=== PATIENT | male | born 1980 | race African-American/Black ===

== ENCOUNTER 2023-12-05 05:40 | Day surgery (SDC) | payer BC ==
[2023-11-26 08:20] VITALS: BP 133/92
[~2023-12-05] VITALS: Ht 180.3 cm; Wt 95.5 kg
[~2023-12-05 05:40] MED LIST: LACTATED RINGER'S 1,000 ML IV SCH
[2023-12-05 05:59] VITALS: BP 132/92
--- NOTE | 2023-12-05 06:07 | NUR ---
WITH PT WAITING. WILL GO TO WORK.
[2023-12-05] MEDS ORDERED: IBLOOD GLUCOSE TEST STRIP 1 EA TEST VI PRN (07:00)
[2023-12-05] MEDS ORDERED: LIDOCAINE HCL 1% 5 ML SDV INJ ONE (07:00)
[2023-12-05] MEDS ORDERED: HEParin SOD (PORCINE) 5,000 UNIT/0.5 ML SYR SUB-Q SCH (07:00)
[2023-12-05] MEDS ORDERED: CEFAZOLIN SODIUM 2 GM/20 ML SYR IV SCH (07:00)
[2023-12-05] MEDS ORDERED: fentaNYL citrate 100 MCG/2 ML VIAL ONE (07:16)
[2023-12-05] MEDS ORDERED: ondansetron HCL 4 MG/2 ML VIAL ONE (07:17)
[2023-12-05] MEDS ORDERED: propofoL 200 MG/20 ML VIAL ONE (07:17)
[2023-12-05] MEDS ORDERED: ROCURONIUM BROMIDE 50 MG/5 ML SYR ONE (07:18)
[2023-12-05] MEDS ORDERED: LIDOCAINE HCL 2% 5 ML SDV ONE (07:18)
--- NOTE | 2023-12-05 07:18 | NUR ---
STEWARD/STEWARDESS TOURIST CLASS IN TO TALK WITH PT IN TO JOE PT LEFT FOR WORK.
[2023-12-05] MEDS ORDERED: SUGAMMADEX SODIUM 200 MG/2 ML ML ONE (08:01)
[2023-12-05] MEDS ORDERED: KETOROLAC TROMETHAMINE 30 MG/ML VIAL ONE (08:06)
[2023-12-05] MEDS ORDERED: NALOXONE HCL 0.4 MG SYR IV PRN ×2 (08:30→09:00)
[2023-12-05] MEDS ORDERED: HYDROmorphone HCL 1 MG/ML SYR IV PRN (08:30)
[2023-12-05] MEDS ORDERED: PROCHLORPERAZINE EDISYLATE 10 MG/2 ML VIAL IV PRN (08:30)
[2023-12-05] MEDS ORDERED: HYDROCODONE/ACETA 5/325 TAB PO PRN (08:30)
[2023-12-05] MEDS ORDERED: ondansetron HCL 4 MG/2 ML VIAL IV PRN ×2 (08:30→09:00)
--- NOTE | 2023-12-05 08:42 | NUR ---
12/05/23 0842 Magaña,Doretha Mckenna 0825: OXYGEN DECREASED TO 4 L/MIN VIA MASK. 0831: OXYGEN MASK REMOVED. PATIENT ON ROOM AIR. PATIENT DENIES PAIN. DR. ROSALES AT BEDSIDE SPEAKING WITH PATIENT. 0835: PATIENT GIVEN WATER TO SIP ON.
[2023-12-05 08:50] VITALS: BP 129/91
--- NOTE | 2023-12-05 08:55 | NUR ---
AT WORK RESTING QUIETLY. WATER CRACKERS AND CALL LIGHT GIVEN.
[2023-12-05] MEDS ORDERED: MEPERIDINE HCL 25 MG/1 ML VIAL IV PRN (09:00)
[2023-12-05] MEDS ORDERED: METOCLOPRAMIDE HCL 10 MG/2 ML SDV IV PRN (09:00)
[2023-12-05] MEDS ORDERED: fentaNYL citrate 50 MCG/ML SDV IV PRN (09:00)
[2023-12-05] MEDS ORDERED: diphenhydrAMINE HCL 50 MG/ML VIAL IV PRN (09:00)
[2023-12-05] MEDS ORDERED: MORPHINE SULFATE 10 MG/ML VIAL IV PRN (09:00)
[2023-12-05 09:52] VITALS: BP 138/88
[2023-12-05 10:36] VITALS: BP 144/87
--- NOTE | 2023-12-05 10:37 | NUR ---
DENIES ANY NEED FOR PAIN MED STATES MORE LIKE A SORE MUSCLE.
--- NOTE | 2023-12-05 11:03 | NUR ---
NO SCRIPT ON CHART PT STATES HE DOESNT TAKE NARCOTICS. DR ROSALES CALLED AND PT TO USE IBUPROFEN ALEVE OR TYLENOL AND TO CALL HOSPITAL IF HE CHANGES MIND. CONTINUE TO USE ICE PACK FOR COMFORT.
--- NOTE | 2023-12-09 06:31 | OR ---
[facility] [address], [place] [address] Signed DATE OF OPERATION: 12/05/2023 SURGEON: Vanessa Rosales MD PREOPERATIVE DIAGNOSES: 1. Incarcerated epigastric hernia (8 mm). 2. Possible umbilical hernia. POSTOPERATIVE DIAGNOSES: 1. Incarcerated epigastric hernia (8 mm). 2. No umbilical hernia. PROCEDURE: Primary umbilical herniorrhaphy with intra-abdominal 4.3 cm round Ventralex mesh. ESTIMATED BLOOD LOSS: None. INDICATIONS: Norman is a 43-year-old gentleman, who happens to work for [email or web address] He has to lift up to 150 pounds on a daily basis. He actually came to the office in 2020. He had a small incarcerated epigastric hernia just above the umbilicus. There was concern that he might have a small umbilical hernia as well on physical exam. He wanted to wait and see how things would go on a conservative basis. He said he has been having more pain and he thinks the epigastric hernia has increased in size. He does not complain about pain at the base of the umbilicus. He came back to the office to have me re-examine him and consider surgical repair. Indeed he has an incarcerated epigastric hernia. Once again, it is little unclear if he has a small umbilical hernia at the base. I had given our brochure on hernias and we went through it page by page. He understands the nature of an epigastric hernia. We reviewed primary suture repair versus mesh repair. He understands the expected intraop and postop course. There is risk including, but not limited to bleeding, infection, scarring, change in contour of the skin, damage to bowel, infection of mesh requiring removal, recurrent hernias and chronic pain. He had expressed understanding and wished to proceed. PROCEDURE IN DETAIL: I met with Norman in our preop area. We both agreed on the epigastric hernia and marked it appropriately. We re-examined the umbilicus and again we are not entirely sure that he has a fascial defect at the base. I told him I would check that intraoperatively and if necessary, I would use larger mesh to cover both areas. After this, Norman was taken Electronically Signed By: VANESSA ROSALES MD 12/09/23 0631 PATIENT NAME: NORMAN CARBAJAL OPERATIVE REPORT DATE OF : 78 REPORT #: [id number] PHYSICIAN: VANESSA ROSALES MD PCP: MARCELLE LAMB MD REPORT IS CONFIDENTIAL AND NOT TO BE RELEASED WITHOUT AUTHORIZATION [facility] [address], [place] [address] Signed into the operating room and placed in the supine position under general endotracheal tube anesthesia. He was given preoperative antibiotics along with subcutaneous heparin. SCDs were utilized. He was prepped and draped in the usual sterile fashion. We made a standard vertical incision above the umbilicus, went down around the herniated fat bluntly and with the cautery. The herniated fat and hernia sac were excised with the help of the cautery. His fascial defect was about 8 mm. With the help of Pean clamp, we explored the area of the umbilicus and we could not convince ourselves that he had a fascial defect. Consequently, we chose our 4.3 cm round Ventralex mesh and we placed that inside the abdomen, brought up and flushed against the posterior abdominal wall. His falciform ligament was not involved. The mesh was held in place with interrupted [id number] #1 Prolene suture with two passes of the Prolene suture through the tab on the mesh to hold it in place. The tab was then cut, flushed with the abdominal wall. An additional simple suture was placed on the left side of the fascial defect with #1 Prolene suture. After this, local anesthetic was copiously injected into the abdominal wall and subcutaneous tissues. The wound was irrigated and suctioned out until clear. We closed the dermis with interrupted 3-0 subcuticular Monocryl sutures. The skin edges were reapproximated with a running 5-0 fast absorbing plain gut suture. Dry gauze and tape was then applied. Norman was awakened from his anesthesia, extubated in the OR, and taken to recovery room in stable condition. Vanessa Rosales MD ALB/MODL /[id number] cc: MD Marcelle Trujillo MD Copies: VANESSA ROSALES MD, RUSSELL BARR MD ~ Electronically Signed By: VANESSA ROSALES MD 12/09/23 0631 PATIENT NAME: NORMAN CARBAJAL OPERATIVE REPORT DATE OF : 78 REPORT #: [id number] PHYSICIAN: VANESSA ROSALES MD PCP: MARCELLE LAMB MD REPORT IS CONFIDENTIAL AND NOT TO BE RELEASED WITHOUT AUTHORIZATION
== END 2023-12-05 11:15 | disposition home or self-care (01) ==
LOC: DS 05:40
PROVIDERS: ATTEND Colon & Rectal Surgery
PROC: 0WUF0JZ Supplement Abdominal Wall with Synthetic Substitute, Open Approach (ICD-10-PCS; principal; 2023-12-05 07:30)
DX: K43.6 Other and unspecified ventral hernia with obstruction, without gangrene (principal); K21.9 Gastro-esophageal reflux disease without esophagitis; E78.5 Hyperlipidemia, unspecified; Z87.891 Personal history of nicotine dependence
CPT/HCPCS: 00750; C1781; J0690; J1644; J1885; J2001; J2405; J2704; J3010; J3490; J7121

== ENCOUNTER 2024-04-26 08:20 | Day surgery (SDC) | payer OTHER, BC ==
--- NOTE | 2024-04-22 11:38 | NUR ---
PHONE CALL TO COMPLETE PHONE PRE ADMIT NO ANSWER AT [phone]. LEFT INSTRUCTION VIA PHONE IF UNABLE TO REACH PT. NPO AT MIDNIGHT ON 04-25-24 AND ARRIVAL TIME.
[~2024-04-26] VITALS: Ht 180.3 cm; Wt 107.7 kg
[~2024-04-26 08:20] MED LIST changes: +CEFAZOLIN SODIUM 2 GM/20 ML SYR IV SCH; +IBLOOD GLUCOSE TEST STRIP 1 EA TEST VI PRN; +LIDOCAINE HCL 1% 5 ML SDV INJ ONE; +TRANEXAMIC ACID IN NACL,ISO-OS 1,000 MG/100 ML PIGGYBACK IV SCH
[2024-04-26 08:45] VITALS: BP 128/89
--- NOTE | 2024-04-26 09:00 | NUR ---
BACILIO WAITING WITH PT THEN GOING TO WORK TO CALLED.
[2024-04-26] MEDS ORDERED: LIDOCAINE HCL 2% 20 MG/ML VIAL INJ ONE (09:45)
[2024-04-26] MEDS ORDERED: fentaNYL citrate 100 MCG/2 ML VIAL ONE (09:45)
[2024-04-26] MEDS ORDERED: Ropivacaine HCl 0.5% 30 ML VIAL ONE (09:45)
[2024-04-26] MEDS ORDERED: propofoL 200 MG/20 ML VIAL ONE (09:45)
[2024-04-26] MEDS ORDERED: DEXAMETHASONE SOD PHOS 4 MG/ML VIAL ONE (09:45)
[2024-04-26] MEDS ORDERED: ondansetron HCL 4 MG/2 ML VIAL ONE (09:45)
[2024-04-26] MEDS ORDERED: MIDAZOLAM HCL 2 MG/2 ML VIAL ONE (09:45)
[2024-04-26] MEDS ORDERED: SEVOFLURANE 250 ML BTL INH ONE (10:51)
--- NOTE | 2024-04-26 10:59 | NUR ---
DR THORNE IN AND MARKED PT EARLIER. DC SOFTWARE ASSET MANAGER IN AND TALKED WITH TP AND DID BLOCK FOR SHOULDER SURGERY SEE ANESTHESIA NOTES.
[2024-04-26] MEDS ORDERED: IBLOOD GLUCOSE TEST STRIP 1 EA TEST VI PRN (11:30)
[2024-04-26] MEDS ORDERED: NALOXONE HCL 0.4 MG SYR IV PRN (11:30)
[2024-04-26] MEDS ORDERED: PROCHLORPERAZINE EDISYLATE 10 MG/2 ML VIAL IV PRN (11:30)
[2024-04-26] MEDS ORDERED: HYDROmorphone HCL 1 MG/ML SYR IV PRN (11:30)
[2024-04-26] MEDS ORDERED: droPERidol 5 MG/2 ML VIAL IV PRN (11:30)
[2024-04-26] MEDS ORDERED: ondansetron HCL 4 MG/2 ML VIAL IV PRN (11:30)
[2024-04-26] MEDS ORDERED: fentaNYL citrate 50 MCG/ML SDV IV PRN (11:30)
[2024-04-26] MEDS ORDERED: LACTATED RINGER'S 1,000 ML IV ONE (11:41)
[2024-04-26] MEDS ORDERED: HYDROCODON-ACE1 EA11 PO (13:05)
[2024-04-26] MEDS ORDERED: CELECOXIB200 MG PO (13:05)
[2024-04-26] MEDS ORDERED: HYDROCODONE/ACETA 7.5/325 TAB PO PRN (13:15)
[2024-04-26] MEDS ORDERED: OXYCODONE HCL 5 MG TAB PO PRN (13:15)
--- NOTE | 2024-04-26 13:15 | NUR ---
04/26/24 1315 Kyung Coyle PATIENT OPENS HIS EYES AND DENIES PAIN. HE REPORTS "I'M JUST SLEEPY."
[2024-04-26 13:40] VITALS: BP 126/81
[2024-04-26 14:50] VITALS: BP 136/97
--- NOTE | 2024-04-26 15:03 | NUR ---
1450 WAS GIVEN SHOULDER SURGERY INSTRUCTIONS FROM DR THORNE OFFICE CONTINUES TO HAVE NUMBNESS. EXPLAIN HE WILL HAVE TO MAKE SURE WHERE HIS ELBOW IS NOT RESTING ON ANYTHING HE CANT FEEL IF ANY PRESSURE AGAINST IT. EXPLAINED HOW TO FILL CRYOFUFF CONTAINER, IMMOBILIZER INSTRUCTIONS. NO QUESTIONS.
[2024-04-26] MEDS ORDERED: CELECOXIB 200 MG CAP PO SCH (17:00)
[2024-04-26] MEDS ORDERED: ASPIRIN 325 MG TAB PO SCH (21:00)
--- NOTE | 2024-04-30 06:53 | OR ---
[facility] [address] [place], [place] [address] Signed DATE OF OPERATION: 04/26/2024 SURGEON: Lyndsey Malhotra MD PREOPERATIVE DIAGNOSIS: Superior labral tear, right shoulder. POSTOPERATIVE DIAGNOSES: 1. Superior labral tear, right shoulder. 2. Posterior labral tear, right shoulder. PROCEDURE PERFORMED: Right labral repair with arthroscopy, right shoulder. NET SOFTWARE ENGINEER: None. ANESTHESIA: General. BLOOD LOSS: Minimal. IMPLANTS: Two PushLock anchors. BRIEF HISTORY: Kaushal is a 43-year-old gentleman, who injured himself at work. He underwent nonoperative treatment without substantial relief. MRI was consistent with the superior labral tear and perhaps posterior labral. The risks, benefits, and alternatives of surgery were discussed with him and he elected to proceed. Once consent was obtained, he was taken to the operating room. After adequate anesthesia, he was placed in a beach chair position. All downside pressure points were well padded. The right shoulder was prepped and draped in a standard sterile fashion. The shoulder was injected with 15 mL of 0.25% plain Marcaine with epinephrine. A standard posterior portal was made and the scope was introduced in the shoulder. ARTHROSCOPIC FINDINGS: The superior labrum was noted to be torn from the biceps insertion posteriorly to about the 3 o'clock position. 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 The anterior labrum was intact. The rotator cuff was intact. DESCRIPTION OF THE OPERATION: Standard anterior portal and superolateral portal were established. We then debrided the glenoid rim from the inferior portion of the tear to the undersurface of the biceps. This was done with labral elevator to mobilize the soft tissue, followed by the round luis eduardo and the motorized luis eduardo. We then placed a labral tape in a looped fashion around the labrum just posterior to the biceps. We then placed and drilled a PushLock anchor. This was then loaded with sutures and impacted until it was well-seated. The 2nd anchor was just placed just posterior to the posterosuperior corner and with some difficulty a labral tape suture was then placed through the labrum and a little bit of capsular tissue. The PushLock was then drilled and loaded with the sutures and impacted until it was well-seated. Final picture showed good repair of the labrum and stability of the shoulder. The suture ends were cut and the scope was withdrawn. Portals were closed with 3-0 nylon and dressed with Allevyn and OpSite. He tolerated the procedure well. All sponge, needle, and instrument counts were correct. Lyndsey Malhotra MD BA/MODL /[id number] Copies: ~ Electronically Signed By: LYNDSEY MALHOTRA MD 04/30/24 0653 PATIENT NAME: KAUSHAL CARBAJAL OPERATIVE REPORT DATE OF : 78 REPORT #: [id number] PHYSICIAN: LYNDSEY MALHOTRA MD PCP: MARCELLE LAMB MD REPORT IS CONFIDENTIAL AND NOT TO BE RELEASED WITHOUT AUTHORIZATION
== END 2024-04-26 14:50 | disposition home or self-care (01) ==
LOC: DS 08:20
PROVIDERS: ATTEND Specialist
PROC: 0RQJ4ZZ Repair Right Shoulder Joint, Percutaneous Endoscopic Approach (ICD-10-PCS; principal; 2024-04-26 10:30)
DX: S43.431A Superior glenoid labrum lesion of right shoulder, initial encounter (principal); M94.211 Chondromalacia, right shoulder; X58.XXXA Exposure to other specified factors, initial encounter
CPT/HCPCS: 01630; 64415; 76942; C1713; J0690; J1100; J2250; J2405; J2704; J2795; J3010; J7121